=== PATIENT | male | born 1975 | race Caucasian/White ===

== ENCOUNTER 2018-08-29 05:30 | Emergency (ER) | payer OTHER ==
--- NOTE | 2018-08-29 05:47 | ED Physician Documentation ---
Sore Throat/Dental Pain - HISTORIAN Historian: patient - HPI Stated Complaint: Dental Pain Chief Complaint: Dental Pain Onset: hours (4) Context: Fractured Tooth Associated Symptoms: mild. denies: fever, chills, sore throat, unable to swallow, runny nose, congestion, R ear pain, L ear pain, cough, swollen glands Worsened By: heat, cold Further Comments: yes (He states about 230 am he woke with dental pain on bottom right back tooth. He knows he broke a tooth with no dental repair. He did not try any OTC meds for pain just orajel. No fever. No other complaints) - ROS CONST: no problems - PAST HX Past History: none Allergies/Adverse Reactions: Allergies Allergy/AdvReac Type Severity Reaction Status Date / Time No Known Allergies Allergy Verified 08/29/18 05:45 - SOCIAL HX Smoking History: cigarettes Alcohol Use: none Drug Use: none - FAMILY HX Family History: No - VITAL SIGNS Vital Signs: Vital Signs Temp Pulse Resp BP Pulse Ox 98.1 F 89 16 176/81 96 08/29/18 05:31 08/29/18 05:31 08/29/18 05:31 08/29/18 05:31 08/29/18 05:31 - REVIEWED ASSESSMENTS Nursing Assessment Reviewed: Yes Vitals Reviewed: Yes Dental Pain Physical Exam - EXAM General Appearance: no acute distress, alert Head/Neck: head nml inspection Eyes: eyes nml inspection Mouth/Throat: lips nml, pharynx nml, voice nml, no drooling, no air way problems, gum swelling around teeth, widespread dental decay, other (broken to oth back right lower tooth ). No: drooling Ear/Nose: nml inspection Respiratory: no resp. distress, breath sounds nml CVS: reg. rate & rhythm Abdomen: soft, normal bowel sounds, no distension, non-tender Extremities: non-tender Skin: warm/dry Neuro/Psych: none Discharge Clincal Impression: Pain, dental Comments: 1. Ibuprofen 800 mg take 1 by mouth every 12 hours as needed for pain 2. Warm salt water gargles 3. Amoxicillin 875 mg take 1 by mouth twice daily 4. Make dental appt 5. Return to ER for any increasing concerns Condition: Stable Disposition: 01 HOME, SELF-CARE Decision to Admit: NO Date of Decison to Admit: 08/29/18 Decision Time: 05:59
[2018-08-29] MEDS ORDERED: IBUPROFEN 400 MG TABLET PO ONE (05:59)
[2018-08-29 07:06] VITALS: BP 176/81
== END 2018-08-29 06:15 | disposition home or self-care (01) ==
LOC: ED 05:30
DX: K08.89 Other specified disorders of teeth and supporting structures (principal)
CPT/HCPCS: 99281; 99282